=== PATIENT | female | born 1940 | race Two or more races ===

== ENCOUNTER 2017-12-30 07:00 | Day surgery (SDC) | payer BC, MEDICARE ==
[2017-12-23 11:35] VITALS: BMI 23.5
[~2017-12-30 07:00] MED LIST: ALPRAZolam 0.5 MG TAB PO PRN; HEPARIN SODIUM,PORCINE 5,000 UNIT/ML 1 ML VIAL SQ ONE; HYDROmorphone 0.5 MG/0.5 ML SYRINGE IVP PRN; LACTATED RINGERS 1,000 ML IV SCH; MORPHINE SULFATE 4 MG/ML SYRINGE IV PRN; ONDANSETRON 4 MG/2 ML VIAL IVP PRN; ceFAZolin IN SWFI 2 GM/20 ML SYRINGE IVP ONE
[2017-12-30 07:45] VITALS: RESP 16; TEMP 98.2
[2017-12-30] MEDS ORDERED: LIDOCAINE 1% 20 ML VIAL (10MG/ML) FOR IV START INTRADERMA ONE (07:45)
[2017-12-30] MEDS ORDERED: DEXAMETHASONE SOD PHOSPHATE 10 MG/ML 1 ML VIAL IV ONE (07:46)
[2017-12-30] MEDS ORDERED: BUPIVACAINE (PF) 0.25% 30 ML VIAL SQ ONE (08:01)
--- NOTE | 2017-12-30 08:01 | P.GSHP ---
History of Present Illness H&P Date: 12/30/17 Chief Complaint: Right breast mass This a 77-year-old female referred from Dr. Farhana Rahman. Patient presents today for excision of right breast mass. Patient developed a mass in her right breast. Masses been present for approximately 2 months. It is firm and nontender. It is located in the upper outer quadrant of the breast. Past Medical History Past Medical History: Hypertension Additional Past Medical History / Comment(s): anemia History of Any Multi-Drug Resistant Organisms: None Reported Past Surgical History: Hysterectomy Past Anesthesia/Blood Transfusion Reactions: No Reported Reaction, Motion Sickness Smoking Status: Never smoker - Past Family History Daughter(s) Family Medical History: Cancer Additional Family Medical History / Comment(s): breast Medications and Allergies Home Medications Medication Instructions Recorded Confirmed Type Iron 27 mg PO DAILY 12/23/17 12/23/17 History Lisinopril-Hctz 20-25 mg 1 tab PO DAILY 12/23/17 12/23/17 History [Zestoretic 20-25] Meloxicam [Mobic] 7.5 mg PO DAILY 12/23/17 12/23/17 History traMADol HCL [Ultram] 50 mg PO HS PRN 12/23/17 12/23/17 History traMADol HCL [Ultram] 100 mg PO QAM PRN 12/23/17 12/23/17 History Allergies Allergy/AdvReac Type Severity Reaction Status Date / Time No Known Allergies Allergy Verified 12/30/17 07:11 Surgical - Exam Vital Signs Temp Pulse Resp BP Pulse Ox 98.2 F 117 H 16 126/70 96 12/30/17 07:43 12/30/17 07:43 12/30/17 07:43 12/30/17 07:43 12/30/17 07:43 - General well developed, no distress - Eyes PERRL - ENT normal pinna - Neck no masses - Respiratory normal expansion - Cardiovascular Rhythm: regular - Abdomen Abdomen: soft, non tender 3 cm mass in the upper outer quadrant of the right breast. The mass appears to be just below the dermis. It may be a dermal cyst. Results - Labs 12/30/17 07:28 Diabetes panel 12/30/17 Range/Units 07:28 Potassium 4.3 (3.5-5.1) mmol/L Pituitary panel 12/30/17 Range/Units 07:28 Potassium 4.3 (3.5-5.1) mmol/L Adrenal panel 12/30/17 Range/Units 07:28 Potassium 4.3 (3.5-5.1) mmol/L Assessment and Plan Assessment: Right breast mass. We'll perform excision.
[2017-12-30] MEDS ORDERED: PROPOFOL 10 MG/ML 20 ML VIAL IV ONE (08:06)
[2017-12-30] MEDS ORDERED: MIDAZOLAM 2 MG/2 ML VIAL ONE (08:06)
[2017-12-30] MEDS ORDERED: fentaNYL (PF) 50 MCG/ML 2 ML AMP ONE (08:06)
[2017-12-30] MEDS ORDERED: traMADol 50 MG TAB PO ONE (09:03)
--- NOTE | 2017-12-30 09:08 | P.OP ---
Date of Procedure: 12/30/17 Preoperative Diagnosis: Right breast mass Postoperative Diagnosis: Defer to pathology Procedure(s) Performed: Right breast biopsy Anesthesia: MAC Surgeon: Dwayne Miller Estimated Blood Loss (ml): 5 Pathology: none sent (Breast biopsy) Condition: stable Disposition: PACU Description of Procedure: The patient was placed on the operating table in supine position. She received IV sedation. Her right breast was prepped and draped usual sterile fashion. In the upper outer quadrant of the right breast there was a 3 cm mass. This area was anesthetized 1% local Xylocaine. The skin was incised the mass was very superficial. Using electro cautery the mass was dissected free. The Bovie was used for hemostasis.'s. The skin was closed interrupted 3-0 Monocryl suture. Dermabond was applied. Patient tolerated the procedure well well and was sent to recovery room stable condition.
[2017-12-30 09:43] VITALS: BP 124/60; PULSE 86
== END 2017-12-30 09:54 | disposition home or self-care (01) ==
LOC: OR 07:00
PROVIDERS: ATTEND Surgery
DX: C50.411 Malignant neoplasm of upper-outer quadrant of right female breast (principal); I10 Essential (primary) hypertension; D64.9 Anemia, unspecified; Z79.1 Long term (current) use of non-steroidal anti-inflammatories (NSAID); Z79.899 Other long term (current) drug therapy; Z80.3 Family history of malignant neoplasm of breast
CPT/HCPCS: 19120; 84132; 88307; J2250; J1644; J1100; J2405; J3010; J2704; J0690

== ENCOUNTER 2018-01-10 08:00 | Day surgery (SDC) | payer MEDICARE ==
[2018-01-08 13:44] VITALS: BMI 24.3
--- NOTE | 2018-01-10 07:54 | P.GSHP ---
History of Present Illness H&P Date: 01/10/18 Chief Complaint: Right breast cancer This a 77-year-old female who presents today for right breast lumpectomy and sentinel node biopsy. Patient was recently diagnosed with right breast cancer. Patient has opted for lumpectomy with sentinel node biopsy. Past Medical History Past Medical History: Hypertension Additional Past Medical History / Comment(s): anemia History of Any Multi-Drug Resistant Organisms: None Reported Past Surgical History: Breast Surgery, Hysterectomy Past Anesthesia/Blood Transfusion Reactions: No Reported Reaction, Motion Sickness Smoking Status: Never smoker - Past Family History Daughter(s) Family Medical History: Cancer Additional Family Medical History / Comment(s): breast Medications and Allergies Home Medications Medication Instructions Recorded Confirmed Type Iron 27 mg PO QAM 12/23/17 01/08/18 History Lisinopril-Hctz 20-25 mg 1 tab PO QAM 12/23/17 01/08/18 History [Zestoretic 20-25] Meloxicam [Mobic] 7.5 mg PO QAM 12/23/17 01/08/18 History traMADol HCL [Ultram] 50 mg PO HS PRN 12/23/17 01/08/18 History traMADol HCL [Ultram] 100 mg PO QAM PRN 12/23/17 01/08/18 History Allergies Allergy/AdvReac Type Severity Reaction Status Date / Time No Known Allergies Allergy Verified 01/08/18 13:36 Surgical - Exam - General well developed, no distress - Eyes PERRL - ENT normal pinna - Neck no masses - Respiratory normal expansion - Cardiovascular Rhythm: regular - Abdomen Abdomen: soft - Integumentary Right breast shows evidence of recent biopsy on the lateral anterior aspect of the breast. Assessment and Plan Assessment: Right breast cancer. We'll perform right breast lobectomy with sentinel node biopsy. Patient's aware the risk of possible hematoma, seroma and long thoracic and thoracodorsal nerve injury.
[~2018-01-10 08:00] MED LIST changes: -ALPRAZolam 0.5 MG TAB PO PRN; +DEXAMETHASONE SOD PHOSPHATE 10 MG/ML 1 ML VIAL IV ONE; -HYDROmorphone 0.5 MG/0.5 ML SYRINGE IVP PRN; +MIDAZOLAM 2 MG/2 ML VIAL IV PRN; +ONDANSETRON 4 MG/2 ML VIAL IVP ONE; -ONDANSETRON 4 MG/2 ML VIAL IVP PRN; +Pre Op ABX Message 1 EACH MISC MISCELLANE ONE; -ceFAZolin IN SWFI 2 GM/20 ML SYRINGE IVP ONE
[2018-01-10] MEDS ORDERED: ALPRAZolam 0.25 MG TAB PO ONE (08:31)
--- NOTE | 2018-01-10 10:58 | NM ---
EXAMINATION TYPE: NM sentinel node injection DATE OF EXAM: 01/10/2018 COMPARISON: NONE HISTORY: Right breast carcinoma TECHNIQUE AND FINDINGS: The procedure of sentinel lymph node injection was explained to the patient. The benefits, alternatives, and risks were discussed. An informed consent was then obtained. Overlying skin is cleaned with sterile alcohol. Lidocaine buffered with bicarbonate was used as anes thetic into the skin and subcutaneous tissue surrounding the nipple. Following this, 519 uCi Tc 99m Filtered Sulfur Colloid was injected into 4 equivalent doses at 12, 3, 6, and 9:00 position surroundi ng the right nipple intradermally. The injection sites were massaged by nuclear medicine specialist for 10 minutes after injection. T he patient tolerated the procedure well without any immediate complication. The patient was kept in the radiology department for short stay after the procedure and then taken to surgery for surgical pr ocedure what is presumed intraoperative gamma probe will be used for sentinel lymph node detection. IMPRESSION: Right breast radiotracer injection for sentinel node localization as above.
[2018-01-10] MEDS ORDERED: PHENYLEPHRINE-0.9% NACL SYG 1 MG/10 ML SYRINGE ONE (11:01)
[2018-01-10] MEDS ORDERED: fentaNYL (PF) 50 MCG/ML 2 ML AMP ONE (11:01)
[2018-01-10] MEDS ORDERED: MIDAZOLAM 2 MG/2 ML VIAL ONE (11:01)
[2018-01-10] MEDS ORDERED: PROPOFOL 10 MG/ML 20 ML VIAL IV ONE (11:01)
[2018-01-10] MEDS ORDERED: HYDROmorphone (PF) 1 MG/ML ONE (11:01)
[2018-01-10] MEDS ORDERED: METHYLENE BLUE 10 MG/ML (10 ML VIAL) MISCELLANE ONE (11:16)
[2018-01-10] MEDS ORDERED: SODIUM CHLORIDE 0.9% 50 ML with ceFAZolin 2,000 MG IV ONE ×2 (11:32)
[2018-01-10 12:49] VITALS: TEMP 97.2
[2018-01-10] MEDS: HYDROmorphone 0.5 MG/0.5 ML SYRINGE IVP ONE ×2 (12:55→13:11)
[2018-01-10 13:04] VITALS: RESP 18
--- NOTE | 2018-01-10 13:21 | P.OP ---
Date of Procedure: 01/10/18 Preoperative Diagnosis: right breast cancer Postoperative Diagnosis: right breast cancer Procedure(s) Performed: right breast lumpectomy with sentinel node biopsy Anesthesia: LEVY Surgeon: Dwayne Miller Estimated Blood Loss (ml): 10 Pathology: other (right breast lumpectomy,[place] lymph node, axillary lymph nodenode) Condition: stable Disposition: PACU Description of Procedure: the patient's placed the operative table in supine position. She received general anesthesia. Her right breast was prepped and draped usual fashion. The skin was injected with some blue in 4 quadrants right breast. This was massaged for 4 minutes. Next a skin incision made in the sella and then using belectrocautery the clavipectoral fascia was divided. And then using a pair of hemostats the area was bluntly dissected. A blue colored sentinel lymph node was found. This was measured with the neoprobe and was found to contain radiotracer. This was dissected and sent to pathology. The frozen section was a benign lymph node. This point the axilla was examined. There appeared to be another area that had a blue colored lymph node which was radio tracer positive. This was also sent for frozen section and was negative as well. There was a calcified lymph node which was sent. This was sent for permanent sections. Next a elliptical skin incision was made around previous breast biopsy site. Using the Harmonic scissors and electrocautery the lumpectomy was performed. The Bovie hemostasis. The skin of the lump at the site was closed using 3-0 Monocryl suture. The axillary incision was examined. BRYAN drains placed through separate stab incision. And then the skin was closed interrupted 3-0 Monocryl suture. Dermabond dressing was applied. Patient was sent to recovery in stable.
[2018-01-10] MEDS ORDERED: HYDROcodone/APAP 7.5-325MG 1 EACH TAB PO ONE (14:08)
[2018-01-10 14:32] VITALS: BP 115/85; PULSE 85
== END 2018-01-10 14:51 | disposition home or self-care (01) ==
LOC: OR 08:00
PROVIDERS: ATTEND Surgery
DX: C50.911 Malignant neoplasm of unspecified site of right female breast (principal); I89.8 Other specified noninfective disorders of lymphatic vessels and lymph nodes; N60.11 Diffuse cystic mastopathy of right breast; I10 Essential (primary) hypertension; D64.9 Anemia, unspecified; Z80.3 Family history of malignant neoplasm of breast; Z79.1 Long term (current) use of non-steroidal anti-inflammatories (NSAID); Z79.891 Long term (current) use of opiate analgesic; Z79.899 Other long term (current) drug therapy
CPT/HCPCS: 19301; 38525; 88312; 88342; 88331; 88307; 88311; 88341; 38792; A9541; J2250; J1644; J1100; J2405; J2001; Q9968; J3010; J1170 ×2; J0690; J2370; J2704

== ENCOUNTER → 2018-07-21 | Outpatient (CLI) | payer MEDICARE ==
--- NOTE | 2018-07-22 14:56 | MM ---
Reason for exam: additional evaluation requested from prior study. Last mammogram was performed 2 years and 1 month ago. History: Patient is postmenopausal and has history of breast cancer at age 77. Taking antineoplastic for 3 months. Rt. breast lumpectomy and lymhnode removed 12/19 Radiation Right breast Physical Findings: Nurse did not find any significant physical abnormalities on exam. MG 3D Diag Mammo W/Cad WILLA Bilateral CC and MLO view(s) were taken. Prior study comparison: June 19, 2016, bilateral mammogram. The breast tissue is extremely dense which could obscure a lesion on mammography. There is distortion in the right upper outer breast and skin thickening, known treatment changes. No discrete abnormality. These results were verbally communicated with the patient and result sheet given to the patient on 07/21/18. ASSESSMENT: Benign, BI-RAD 2 RECOMMENDATION: Follow-up diagnostic mammogram of both breasts in 1 year.
== END | disposition home or self-care (01) ==
LOC: RADMAMWWP 10:48
PROVIDERS: ATTEND Radiology Radiation Oncology
DX: C50.411 Malignant neoplasm of upper-outer quadrant of right female breast (principal)
CPT/HCPCS: 77066; G0279; 77062

== ENCOUNTER → 2019-01-20 | Outpatient (CLI) | payer MEDICARE ==
[~2019-01-20] MED LIST changes: +DENOSUMAB 60 MG/ML 1 ML SYRINGE SQ ONE; -DEXAMETHASONE SOD PHOSPHATE 10 MG/ML 1 ML VIAL IV ONE; -HEPARIN SODIUM,PORCINE 5,000 UNIT/ML 1 ML VIAL SQ ONE; -LACTATED RINGERS 1,000 ML IV SCH; -MIDAZOLAM 2 MG/2 ML VIAL IV PRN; -MORPHINE SULFATE 4 MG/ML SYRINGE IV PRN; -ONDANSETRON 4 MG/2 ML VIAL IVP ONE; -Pre Op ABX Message 1 EACH MISC MISCELLANE ONE
[2019-01-20 12:47] VITALS: BP 116/69; PULSE 108; RESP 16; TEMP 98.3
== END | disposition home or self-care (01) ==
LOC: PROCWHC3 12:29
PROVIDERS: ATTEND Family Medicine
DX: M81.0 Age-related osteoporosis without current pathological fracture (principal)
CPT/HCPCS: 96372; J0897

== ENCOUNTER 2019-01-30 08:50 | Emergency (ER) | payer MEDICARE ==
[2019-01-30 08:55] VITALS: RESP 18
[2019-01-30] MEDS ORDERED: SODIUM CHLORIDE 0.9% 500 ML 500 ML IV STA (08:58)
--- NOTE | 2019-01-30 09:17 | ED ---
Recheck HPI <Xavi Vogt - Last Filed: 01/30/19 11:32> - General Source: patient Mode of arrival: ambulatory Limitations: no limitations <Tameka Thornton - Last Filed: 01/30/19 15:30> - General Chief Complaint: Recheck/Abnormal Lab/Rx Stated Complaint: shoulder pain, med reaction Time Seen by Provider: 01/30/19 08:57 - History of Present Illness Initial Comments: 78 year old female past medical history of stage 1 breast cancer s/p lumpectomy with radiation, chronic anemia on iron supplements, osteoporosis and hypertension presenting today for chief complaint of left shoulder pain, lightheadedness, weakness. Patient states she is osteoporosis however she is allergic to vitamin D, she states she gets a rash with the supplement. She states he attempted an alternative prolia. This was injected into her left shoulder 2 week ago. Pt states since the injection she has had pain at the site in the left shoulder. Pt also states that for the past few days she has felt "woozy", "lightheaded", denied dizziness, and at times mildly short of breath but states "this is not bad". Pt states weakness feels generalized, no localized to a specific limb/extremity. Patient denies any recent fever, chills , chest pain, back pain, abdominal pain, nausea or vomiting, numbness or tingling, dysuria or hematuria, constipation or diarrhea, headaches or visual changes, or any other complaints. (Tameka Thornton) - Related Data Home Medications Medication Instructions Recorded Confirmed Iron 18 mg PO DAILY 12/23/17 01/30/19 Lisinopril-Hctz 20-25 mg 1 tab PO QAM 12/23/17 01/30/19 [Zestoretic 20-25] traMADol HCL [Ultram] 100 mg PO BID PRN 12/23/17 01/30/19 Cholecalciferol [Vitamin D3] 1,000 unit PO DAILY 01/20/19 01/30/19 Anastrozole [Arimidex] 1 mg PO DAILY 01/30/19 01/30/19 Calcium Carbonate [Calcium] 600 mg PO DAILY 01/30/19 01/30/19 Meloxicam [Mobic] 15 mg PO DAILY 01/30/19 01/30/19 predniSONE See Taper PO DAILY 01/30/19 01/30/19 Allergies Allergy/AdvReac Type Severity Reaction Status Date / Time denosumab [From Prolia] Allergy Rash/Hives Verified 01/30/19 10:01 Review of Systems ROS Other: All systems not noted in ROS Statement are negative. <Xavi Vogt - Last Filed: 01/30/19 11:32> ROS Other: All systems not noted in ROS Statement are negative. <Tameka Thornton - Last Filed: 01/30/19 15:30> ROS Statement: Those systems with pertinent positive or pertinent negative responses have been documented in the HPI. Past Medical History Past Medical History: Cancer, Hypertension Additional Past Medical History / Comment(s): anemia. RIGHT BREAST CANCER- RADIATION ONLY. NO CHEMO. OSTEOPOROSIS. History of Any Multi-Drug Resistant Organisms: None Reported Past Surgical History: Breast Surgery, Hysterectomy Past Anesthesia/Blood Transfusion Reactions: No Reported Reaction, Motion Sickness Past Psychological History: No Psychological Hx Reported Smoking Status: Never smoker Past Alcohol Use History: Occasional Past Drug Use History: None Reported - Past Family History Daughter(s) Family Medical History: Cancer Additional Family Medical History / Comment(s): breast <Tameka Thornton - Last Filed: 01/30/19 15:30> General Exam <Xavi Vogt - Last Filed: 01/30/19 11:32> Limitations: no limitations <Tameka Thornton - Last Filed: 01/30/19 15:30> - General Exam Comments Initial Comments: General: The patient is awake and alert, in no distress, and does not appear acutely ill. Eye: +3 mm pupils are equal, round and reactive to light, extra-ocular movements are intact. No nystagmus. There is normal conjunctiva bilaterally. No signs of icterus. Ears, nose, mouth and throat: There are dry mucous membranes and no oral lesions. Neck: The neck is supple, there is no tenderness or JVD. Cardiovascular: There is a regular rate and rhythm. No murmur, rub or gallop is appreciated. Respiratory: Lungs are clear to auscultation, respirations are non-labored, breath sounds are equal. No wheezes, stridor, rales, or rhonchi. Gastrointestinal: Soft, non-distended, non-tender abdomen without masses or organomegaly noted. There is no rebound or guarding present. No CVA tenderness. Bowel sounds are unremarkable. Musculoskeletal: Normal ROM, no tenderness. Strength 5/5. Sensation intact. DP pulses equal bilaterally 2+. Neurological: A&O x 3. CN II-XII intact, There are no obvious motor or sensory deficits. Coordination appears grossly intact. Speech is normal. Skin: Skin is warm and dry and no rashes or lesions are noted. B/L lower extremity edema. Psychiatric: Cooperative, appropriate mood & affect, normal judgment. (Tameka Thornton) Course <Xavi Vogt - Last Filed: 01/30/19 11:32> <Tameka Thornton - Last Filed: 01/30/19 15:30> Vital Signs 01/30/19 01/30/19 01/30/19 08:51 10:43 11:58 Temperature 97.4 F L 98 F 98 F Pulse Rate 97 89 90 Respiratory 18 18 18 Rate Blood Pressure 154/75 130/64 121/72 O2 Sat by Pulse 99 99 98 Oximetry - Reevaluation(s) Reevaluation #1: 01/30/19 11:32 PA supervision: I proceeded [id number] evaluation the patient and did discuss the findings with her and her family were present. Patient does demonstrate evidence of dehydration. She did have an elevated d-dimer CT was negative for evidence of pulmonary emboli. Patient is feeling improved after IV fluids. She will be discharged I do agree with the assessment and plan. The patient and family are in agreement. Also of note patient does have anemia she has a history of chronic anemia and does take iron for this. (Xavi Vogt) Medical Decision Making - Lab Data Result diagrams: 01/30/19 09:15 01/30/19 09:15 <Xavi Vogt - Last Filed: 01/30/19 11:32> - Lab Data Result diagrams: 01/30/19 09:15 01/30/19 09:15 <Tameka Thornton - Last Filed: 01/30/19 15:30> - Medical Decision Making Well-appearing 78-year-old female. Patient is on a BUN consistent with dehydration. Patient states she does not drink very much daily. Dry on exam. Patient has normal calcium levels. Chest x-ray and EKG within normal limits. D -dimer mildly elevated, CT angiogram revealed no evidence of pulmonary embolism. Patient states she had improvement of lightheadedness after 500 mL bolus. She states she felt much better. Patient states she felt slightly nauseous following IV contrast. She believes this is connected. Patient denies any chest pain, patient does not appear short of breath, denies significant shortness of breath. Patient states she has chronic anemia, hemoglobin 9.9, I recommended outpatient repeat laboratory studies given we have no comparison of previous baseline. Remaining review of system negative, patient appears well, patient was evaluated in person by attending provider Dr. Vogt. This time we feel patient is stable for discharge with outpatient follow- up. Patient is agreeable plan and discharge. Denies questions at this time. Patient's vital signs within normal limits. Return parameters were discussed at length the patient verbalizes understanding. Patient discharged in stable condition appearing well (Tameka Thornton) - Lab Data Lab Results 01/30/19 01/30/19 01/30/19 Range/Units 09:15 09:15 09:15 WBC 7.2 (3.8-10.6) k/uL RBC 3.66 L (3.80-5.40) m/uL Hgb 9.9 L (11.4-16.0) gm/dL Hct 32.1 L (34.0-46.0) % MCV 87.9 (80.0-100.0) fL MCH 27.2 (25.0-35.0) pg MCHC 30.9 L (31.0-37.0) g/dL RDW 15.2 (11.5-15.5) % Plt Count 390 (150-450) k/uL Neutrophils % 74 % Lymphocytes % 17 % Monocytes % 6 % Eosinophils % 2 % Basophils % 1 % Neutrophils # 5.3 (1.3-7.7) k/uL Lymphocytes # 1.2 (1.0-4.8) k/uL Monocytes # 0.4 (0-1.0) k/uL Eosinophils # 0.1 (0-0.7) k/uL Basophils # 0.1 (0-0.2) k/uL Hypochromasia Slight PT 9.4 (9.0-12.0) sec INR 0.8 (<1.2) APTT 22.7 (22.0-30.0) sec D-Dimer 0.90 H (<0.60) mg/L FEU Sodium 139 (137-145) mmol/L Potassium 4.6 (3.5-5.1) mmol/L Chloride 107 (98-107) mmol/L Carbon Dioxide 26 (22-30) mmol/L Anion Gap 6 mmol/L BUN 31 H (7-17) mg/dL Creatinine 0.94 (0.52-1.04) mg/dL Est GFR (CKD-EPI)AfAm 68 (>60 ml/min/1.73 sqM) Est GFR (CKD-EPI)NonAf 59 (>60 ml/min/1.73 sqM) Glucose 106 H (74-99) mg/dL Calcium 9.3 (8.4-10.2) mg/dL Total Bilirubin 0.3 (0.2-1.3) mg/dL AST 14 (14-36) U/L ALT 31 (9-52) U/L Alkaline Phosphatase 84 (38-126) U/L Creatine Kinase 31 (30-135) U/L Troponin I (0.000-0.034) ng/mL Total Protein 6.3 (6.3-8.2) g/dL Albumin 3.6 (3.5-5.0) g/dL 01/30/19 Range/Units 09:15 WBC (3.8-10.6) k/uL RBC (3.80-5.40) m/uL Hgb (11.4-16.0) gm/dL Hct (34.0-46.0) % MCV (80.0-100.0) fL MCH (25.0-35.0) pg MCHC (31.0-37.0) g/dL RDW (11.5-15.5) % Plt Count (150-450) k/uL Neutrophils % % Lymphocytes % % Monocytes % % Eosinophils % % Basophils % % Neutrophils # (1.3-7.7) k/uL Lymphocytes # (1.0-4.8) k/uL Monocytes # (0-1.0) k/uL Eosinophils # (0-0.7) k/uL Basophils # (0-0.2) k/uL Hypochromasia PT (9.0-12.0) sec INR (<1.2) APTT (22.0-30.0) sec D-Dimer (<0.60) mg/L FEU Sodium (137-145) mmol/L Potassium (3.5-5.1) mmol/L Chloride (98-107) mmol/L Carbon Dioxide (22-30) mmol/L Anion Gap mmol/L BUN (7-17) mg/dL Creatinine (0.52-1.04) mg/dL Est GFR (CKD-EPI)AfAm (>60 ml/min/1.73 sqM) Est GFR (CKD-EPI)NonAf (>60 ml/min/1.73 sqM) Glucose (74-99) mg/dL Calcium (8.4-10.2) mg/dL Total Bilirubin (0.2-1.3) mg/dL AST (14-36) U/L ALT (9-52) U/L Alkaline Phosphatase (38-126) U/L Creatine Kinase (30-135) U/L Troponin I <0.012 (0.000-0.034) ng/mL Total Protein (6.3-8.2) g/dL Albumin (3.5-5.0) g/dL - EKG Data EKG Comments: A 12-lead EKG was performed and shows the following: Rate is 91bpm, and rhythm is normal sinus. There are normal QRS complexes and normal R-wave progression. ST segments have no elevation or depression, and TX segments appear normal. EKG reviewed by Dr. Segura. (Tameka Thornton) Disposition <Xavi Vogt - Last Filed: 01/30/19 11:32> Is patient prescribed a controlled substance at d/c from ED?: No Time of Disposition: 11:25 <Tameka Thornton - Last Filed: 01/30/19 15:30> Clinical Impression: Elevated BUN, Dehydration, Chronic anemia Disposition: HOME SELF-CARE Condition: Good Instructions (If sedation given, give patient instructions): Dehydration (ED), Lightheadedness (ED) Additional Instructions: Please use medication as discussed. Please follow-up with family doctor in the next 2 days.. Please return to emergency room if the symptoms increase or worsen or for any other concerns. Referrals: Farhana Rahman DO [Primary Care Provider] - 1-2 days
[2019-01-30 09:25] LABS: Basophils # (A) 0.1 k/uL (0-0.2); Basophils % (A) 1 %; Eosinophils # (A) 0.1 k/uL (0-0.7); Eosinophils % (A) 2 %; HCT 32.1 % (34.0-46.0); HGB 9.9 gm/dL (11.4-16.0); Hypochromasia Slight; Lymphocytes # (A) 1.2 k/uL (1.0-4.8); Lymphocytes % (A) 17 %; MCH 27.2 pg (25.0-35.0); MCHC 30.9 g/dL (31.0-37.0); MCV 87.9 fL (80.0-100.0); Mean Platelet Volume 6.8; Monocytes # (A) 0.4 k/uL (0-1.0); Monocytes % (A) 6 %; Neutrophils # (A) 5.3 k/uL (1.3-7.7); Neutrophils % (A) 74 %; Platelet Count 390 k/uL (150-450); RBC 3.66 m/uL (3.80-5.40); RDW 15.2 % (11.5-15.5); WBC 7.2 k/uL (3.8-10.6)
[2019-01-30 09:37] LABS: INR 0.8 (<1.2); Partial Thromboplastin Time 22.7 sec (22.0-30.0); Prothrombin Time 9.4 sec (9.0-12.0)
[2019-01-30 09:42] LABS: D-Dimer 0.9 mg/L FEU (<0.60)
[2019-01-30 09:47] LABS: Albumin 3.6 g/dL (3.5-5.0); Calcium 9.3 mg/dL (8.4-10.2); Potassium 4.6 mmol/L (3.5-5.1); Total Bilirubin 0.3 mg/dL (0.2-1.3); Total Protein 6.3 g/dL (6.3-8.2)
[2019-01-30 10:46] VITALS: TEMP 98
--- NOTE | 2019-01-30 10:49 | CT ---
EXAMINATION TYPE: CT angio chest DATE OF EXAM: 01/30/2019 9:54 AM COMPARISON: None HISTORY: Shortness of breath Automated exposure control for dose reduction was used. CONTRAST: CTA scan of the thorax is performed and the patient received 80 mL of Omnipaque 370 FINDINGS: LUNGS: Subsegmental changes are seen at both lung bases. Correlate for mild chronic interstitial lung disease and COPD. No pneumothorax. No pleural effusion. There is atherosclerotic change of the aorta with ectasia at the level the aortic arch measuring 3.7 cm. Coronary artery calcification noted. Artifact limits the assessment of the aortic root and portio ns of the aortic arch for dissection. Previous surgery involving the right breast noted and there appears to be right breast scar or a mass measuring 3 cm. Multilevel hypertrophic and degenerative changes of the vertebral column. Pulmonary arteries enhance normally. Structures of the upper abdomen demonstrate a indeterminant upper pole left renal cyst. IMPRESSION: 1. No diagnostic evidence of pulmonary embolism 2. Coronary artery calcification. 3. Ectasia of the aorta which is limited by artifact 4. Correlate for mild chronic interstitial lung disease at the lung bases with subsegmental atelectas is favored over pneumonia correlate clinically. 5. Postsurgical changes involving the right breast with scar or mass measuring 3 cm correlate clinica lly.
--- NOTE | 2019-01-30 10:50 | XR ---
EXAMINATION TYPE: XR chest 2V DATE OF EXAM: 01/30/2019 COMPARISON: CTA chest 01/30/2019 INDICATION: Pain TECHNIQUE: Frontal and lateral views of the chest are obtained. FINDINGS: The heart size is normal. The pulmonary vasculature is normal. There is a density at the right base r measuring 0.5 cm. Follow-up is recommended. Postsurgical sanchez ges are through the right breast region. IMPRESSION: 1. No acute pulmonary process. 2. Nodular density at the right lung base. This appears to correspond to a calcified granuloma CTA pe rformed on the same date.
[2019-01-30 12:00] VITALS: BP 121/72; PULSE 90
== END 2019-01-30 12:00 | disposition home or self-care (01) ==
LOC: EC 08:50
DX: D64.9 Anemia, unspecified (principal); E86.0 Dehydration; R79.9 Abnormal finding of blood chemistry, unspecified; M25.512 Pain in left shoulder; R11.0 Nausea; I10 Essential (primary) hypertension; Z79.899 Other long term (current) drug therapy; M81.0 Age-related osteoporosis without current pathological fracture; Z79.1 Long term (current) use of non-steroidal anti-inflammatories (NSAID); Z79.51 Long term (current) use of inhaled steroids; Z88.8 Allergy status to other drugs, medicaments and biological substances; Z85.3 Personal history of malignant neoplasm of breast; Z92.3 Personal history of irradiation
CPT/HCPCS: 36415; 93005; 85379; 83880; 80053; 82550; 84484; 85025; 85610; 85730; 71046; 71275; 99284; 96360; 96361 ×2; Q9967

== ENCOUNTER → 2019-07-22 | Outpatient (CLI) | payer MEDICARE ==
--- NOTE | 2019-07-23 14:39 | MM ---
Reason for exam: additional evaluation requested from prior study. Last mammogram was performed 1 year ago. History: Patient is postmenopausal and has history of breast cancer at age 77. Lumpectomy of the right breast, December 2017. Radiation therapy of the right breast, 2018. Taking antineoplastic for 3 months. Took other hormone for 1 month. Physical Findings: Nurse did not find any significant physical abnormalities on exam. MG 3D Diag Mammo W/Cad WILLA Bilateral CC and MLO view(s) were taken. XCCL and LM view(s) were taken of the right breast. Prior study comparison: July 21, 2018, bilateral MG 3d diag mammo w/cad WILLA. June 19, 2016, bilateral mammogram. The breast tissue is extremely dense which could obscure a lesion on mammography. Marked skin thickening right breast, stable from 2018. No significant new findings when compared with previous films. These results were verbally communicated with the patient and result sheet given to the patient on 07/22/19. ASSESSMENT: Benign, BI-RAD 2 RECOMMENDATION: Follow-up diagnostic mammogram of both breasts in 1 year.
== END | disposition home or self-care (01) ==
LOC: RADMAMWWP 12:41
PROVIDERS: ATTEND Internal Medicine Hematology & Oncology
DX: Z08 Encounter for follow-up examination after completed treatment for malignant neoplasm (principal); Z85.3 Personal history of malignant neoplasm of breast
CPT/HCPCS: 77066; G0279; 77062

== ENCOUNTER → 2021-08-04 | Outpatient (CLI) | payer MEDICARE ==
--- NOTE | 2021-08-08 10:02 | MM ---
Reason for exam: screening (asymptomatic). Last mammogram was performed 1 year ago. History: Patient is postmenopausal and has history of breast cancer at age 77. Lumpectomy of the right breast, December 2017. Radiation therapy of the right breast, 2018. Taking antineoplastic for 3 months. Took other hormone for 1 month. Physical Findings: A clinical breast exam by your physician is recommended on an annual basis and results should be correlated with mammographic findings. MG 3D Screening Mammo W/Cad Bilateral CC and MLO view(s) were taken. Prior study comparison: July 29, 2020, bilateral MG 3d diag mammo w/cad WILLA. July 22, 2019, bilateral MG 3d diag mammo w/cad WILLA. The breast tissue is extremely dense which could obscure a lesion on mammography. Finding #1: There is stable skin thickening and architectural distortion in the upper outer quadrant of the right breast. Finding #2: There are vascular calcifications in the left breast. There is no new dominant lesion. ASSESSMENT: Benign, BI-RAD 2 RECOMMENDATION: Routine screening mammogram of both breasts in 1 year.
== END | disposition home or self-care (01) ==
LOC: RADMAMWWP 09:50
PROVIDERS: ATTEND Internal Medicine Hematology & Oncology
DX: Z12.31 Encounter for screening mammogram for malignant neoplasm of breast (principal); Z78.0 Asymptomatic menopausal state; Z85.3 Personal history of malignant neoplasm of breast
CPT/HCPCS: 77063; 77067

== ENCOUNTER → 2022-08-07 | Outpatient (CLI) | payer MEDICARE ==
--- NOTE | 2022-08-08 13:41 | MM ---
Reason for Exam: Screening (asymptomatic). Last screening mammogram was performed 12 month(s) ago. Patient History: Menarche at age 15. First Full-Term at age 21. Left ovary removed at age 31. Right ovary removed at age 31. Hysterectomy at age 31. Postmenopausal. Breast cancer, right, age 77. Previous chest radiation therapy at age 76. 12/2017, Lumpectomy on the Right side. 2017, Radiation Therapy on the right side. Prior Study Comparison: 07/22/2019 Bilateral Diagnostic Mammogram, [facility]. 07/29/2020 Bilateral Diagnostic Mammogram, [facility]. 08/04/2021 Bilateral Screening Mammogram, [facility]. Tissue Density: The breast tissue is extremely dense which could obscure a lesion on mammography. Findings: Analyzed By CAD. Stable benign calcifications. Stable post operative changes in the right breast. Overall Assessment: Benign, BI-RAD 2 Management: Screening Mammogram of both breasts in 1 year. A clinical breast exam by your physician is recommended on an annual basis and results should be correlated with mammographic findings. Electronically signed and approved by: Robert Combs M.D. Radiologis
== END | disposition home or self-care (01) ==
LOC: RADMAMWWP 09:56
PROVIDERS: ATTEND Internal Medicine Hematology & Oncology
DX: Z12.31 Encounter for screening mammogram for malignant neoplasm of breast (principal); Z78.0 Asymptomatic menopausal state; Z85.3 Personal history of malignant neoplasm of breast; Z98.890 Other specified postprocedural states
CPT/HCPCS: 77063; 77067

== ENCOUNTER 2023-04-21 15:08 | Inpatient (IN) | payer MEDICARE ==
--- NOTE | 2023-04-21 17:02 | XR ---
EXAMINATION TYPE: XR chest 1V DATE OF EXAM: 04/21/2023 COMPARISON: Chest x-ray and CT chest January 30, 2019 HISTORY: Fall injury with pain TECHNIQUE: 2 frontal views of the chest are obtained. FINDINGS: There is chronic parenchymal change with new suspicious nodule or nodular consolidation ne ar 1.6 cm right midlung. The cardiac silhouette size is upper limits of normal. The osseous struct ures are demineralized. IMPRESSION: Chronic changes with new 1.6 cm right lung nodule or nodular consolidation. Progress stud y advised. If lesion persists further investigation with CT exam would be warranted.
--- NOTE | 2023-04-21 17:03 | XR ---
EXAMINATION TYPE: XR pelvis AP view DATE OF EXAM: 04/21/2023 CLINICAL HISTORY: Fall injury with pain TECHNIQUE: A single AP view of the pelvis is obtained. COMPARISON: None. FINDINGS: Osseous structures are demineralized which is noted to lower radiographic sensitivity Ther e is no acute displaced fracture evident in the pelvis. [id number] axial joint space loss right greater than left hip. Pubic symphysis is intact. Sacroiliac joints suboptimally evaluated due to shiv cency from overlying bowel gas. IMPRESSION: There is no acute displaced fracture in the pelvis.
--- NOTE | 2023-04-21 17:06 | ED ---
Fall HPI - General Chief Complaint: Fall Stated Complaint: Fall Time Seen by Provider: 04/21/23 16:22 Source: patient, RN notes reviewed, old records reviewed Mode of arrival: EMS Limitations: physical limitation - History of Present Illness Initial Comments: This is a 82-year-old female who presents after a fall down a flight of stairs, patient didn't completely fall downstairs. Patient mechanical fall and did suffer some severe from severe pain severe back pain pelvis pain. Patient has significant history of arthritis and inability decreased motorsecondary to arthritis patient patient is unable to move neck back well secondary to severe arthritis untreated. MD Complaint: fall -: hour(s) Fall From: standing, down stairs (#) When Fall Occurred: recurrent falls (With fall downstairs) Fall Witnessed: yes, by family Place Fall Occurred: home (Full flight) Loss of Consciousness: none Prolonged Down Time?: no Symptoms Prior to Fall: none Location: head, neck, back, pelvis Severity: severe Severity scale (1-10): 8 Quality: sharp Context: tripped/slipped Associated Symptoms: denies - Related Data Home Medications Medication Instructions Recorded Confirmed Lisinopril-Hctz 20-25 mg 1 tab PO DAILY 12/23/17 04/21/23 [Zestoretic 20-25] Meloxicam [Mobic] 15 mg PO DAILY PRN 01/30/19 04/21/23 Furosemide [Lasix] 20 mg PO DAILY 04/21/23 04/21/23 Ipratropium [place] 0.06%Nasal 1 spray EA NOSTRIL BID 04/21/23 04/21/23 [Atrovent Nasal 0.06%] Potassium Chloride ER [K-Dur 10] 10 meq PO Q48H 04/21/23 04/21/23 carvediloL [Coreg] 3.125 mg PO BID 04/21/23 04/21/23 Previous Rx's Medication Instructions Recorded HYDROcodone/APAP 7.5-325MG [[place] 1 tab PO Q4H PRN #30 tab 04/24/23 7.5-325] polyethylene glycoL 3350 [Miralax] 17 gm PO DAILY #30 packet 04/24/23 Allergies Allergy/AdvReac Type Severity Reaction Status Date / Time denosumab [From Prolia] Allergy Rash/Hives Verified 04/21/23 18:13 Review of Systems ROS Statement: Those systems with pertinent positive or pertinent negative responses have been documented in the HPI. ROS Other: All systems not noted in ROS Statement are negative. Past Medical History Past Medical History: Cancer, Hypertension Additional Past Medical History / Comment(s): anemia. RIGHT BREAST CANCER- RADIATION ONLY. NO CHEMO. OSTEOPOROSIS. History of Any Multi-Drug Resistant Organisms: None Reported Past Surgical History: Breast Surgery, Hysterectomy Past Anesthesia/Blood Transfusion Reactions: No Reported Reaction, Motion Sickness Past Psychological History: No Psychological Hx Reported Smoking Status: Never smoker Past Alcohol Use History: Occasional Past Drug Use History: None Reported - Past Family History Daughter(s) Family Medical History: Cancer Additional Family Medical History / Comment(s): breast General Exam Limitations: physical limitation General appearance: alert, in no apparent distress, anxious Head exam: Present: atraumatic, normocephalic, normal inspection Eye exam: Present: normal appearance, PERRL, EOMI. Absent: scleral icterus, conjunctival injection, periorbital swelling ENT exam: Present: normal exam, mucous membranes moist Neck exam: Present: normal inspection. Absent: tenderness, meningismus, lymphadenopathy Respiratory exam: Present: normal lung sounds bilaterally. Absent: respiratory distress, wheezes, rales, rhonchi, stridor Cardiovascular Exam: Present: regular rate, normal rhythm, normal heart sounds. Absent: systolic murmur, diastolic murmur, rubs, gallop, clicks GI/Abdominal exam: Present: soft, normal bowel sounds. Absent: distended, tenderness, guarding, rebound, rigid Extremities exam: Present: normal inspection, full ROM, normal capillary refill. Absent: tenderness, pedal edema, joint swelling, calf tenderness Back exam: Present: normal inspection Neurological exam: Present: alert, oriented X3, CN II-XII intact Psychiatric exam: Present: normal affect, normal mood Skin exam: Present: warm, dry, intact, normal color. Absent: rash Course Vital Signs 04/21/23 04/21/23 04/21/23 15:14 18:00 22:15 Temperature 97.2 F L Pulse Rate 80 82 76 Respiratory 18 16 16 Rate Blood Pressure 136/63 107/68 113/53 O2 Sat by Pulse 96 95 97 Oximetry - Reevaluation(s) Reevaluation #1: 04/22/23 00:25 Medical records reviewed Reevaluation #2: 04/22/23 00:25 Patient's pain is uncontrolled Patient is unable to ambulate Computed tomography scan is obtained secondary to patient's pain Reevaluation #3: 04/22/23 00:25 Patient family informed results and questions answered Reevaluation #4: 04/22/23 00:25 Was pt. sent in by a medical professional or institution? @ -no Did you speak to anyone other than the patient for history? @ -no Did you review nursing and triage notes? @ -agree Were old charts reviewed? @ -no Differential Diagnosis? @ -prior EKG interpreted by me (3pts min.)? @ -yes X-rays interpreted by me (1pt min.)? @ -yes CT interpreted by me (1pt min.)? @ -no U/S interpreted by me (1pt. min.)? @ -no What testing was considered but not performed? (CT, X-rays, U/S, labs)? Why? @ -no What meds were considered but not given? Why? @ -no Did you discuss the management of the patient with other professionals? @ -no Did you reconcile home meds? @ -no Was smoking cessation discussed for >3mins.? @ -no Was critical care preformed (if so, how long)? @ -no Were there social determinants of health that impacted care today? How? (Homelessness, low income, unemployed, alcoholism, drug addiction, transportation, low edu. Level, literacy, decrease access to med. care, usp, rehab)? @ -no Was there de-escalation of care discussed even if they declined? (Discuss DNR or withdrawal of care, Hospice)? @ -no What co-morbidities impacted this encounter? (DM, HTN, Smoking, COPD, CAD, Cancer, CVA, Hep., AIDS, mental health diagnosis, sleep apnea, morbid obesity)? @ -none Was patient admitted / discharged? @ -82 female to the emergency department for fall fall down flight of stairs with pelvic fracture pelvic ring fracture. Pain is well-controlled currently she will be admitted for pain control and placement Discharged Undiagnosed new problem with uncertain prognosis? @ -no Drug Therapy requiring intensive monitoring for toxicity (Heparin, Nitro, Insulin, Cardizem)? @ -no Were any procedures done? @ -no Diagnosis/symptom? @ -Pelvic fracture, fall Acute, or Chronic, or Acute on Chronic? @ -no Uncomplicated (without systemic symptoms) or Complicated (systemic symptoms)? @ -complicated Side effects of treatment? @ -no Exacerbation, Progression, or Severe Exacerbation] @ -no Poses a threat to life or bodily function? @ -no - Consultations Consultation #1: Spoke with admitting physicians will agree to admit this patient Medical Decision Making - Medical Decision Making 82 female to the emergency department for evaluation pain and pelvic pain back pain. Right hip pain. Patient has severe pain here in the ER does have pelvic fracture will admit for pain control - Lab Data Result diagrams: 04/24/23 09:27 04/24/23 09:27 - Radiology Data Radiology results: report reviewed (Chest and pelvis x-ray negative for tobacco injury CT brain C-spine negative for traumatic injury CT of the pelvis is positive for fracture), image reviewed Disposition Clinical Impression: Fall, Occipital scalp laceration, Pelvic fracture Disposition: ADMITTED IP TO THIS [facility] Condition: Stable Is patient prescribed a controlled substance at d/c from ED?: No Time of Disposition: 17:30
--- NOTE | 2023-04-21 17:06 | CT ---
EXAMINATION TYPE: CT brain yoli jaquez DATE OF EXAM: 04/21/2023 COMPARISON: NONE HISTORY: fall injury with headache and neck pain CT DLP: 1257.1 mGycm. Automated Exposure Control for Dose Reduction was Utilized. TECHNIQUE: CT scan of the head and cervical spine are performed without contrast. FINDINGS: There is no acute intracranial hemorrhage or midline shift identified. Mild to moderate v entricular and sulcal prominence. Mild ow attenuation in the deep and periventricular white matter . The calvarium is intact. There is small to moderate size acute scalp hematoma over the high occipital region. The globes are intact and the visualized sinuses are clear. Cervical spine is visualized in its entirety from C1 through upper thoracic levels and demonstrates s atisfactory alignment without evidence of acute fracture or dislocation. Prevertebral soft tissue ap pears within normal limits. The C1-C2 articulation show some lateral ossific fusion on coronal image s. There are bridging osteophytes anteriorly with disc space height maintained. Vertebral body heigh ts are maintained. Multilevel uncovertebral facet degenerative changes on axial images. Lung apices s how no pneumothorax. There is ossification or bridging of the posterior elements also present. IMPRESSION: 1. There is no acute fracture or dislocation evident in the cervical spine. 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 2. No acute intracranial hemorrhage or midline shift is seen.
[2023-04-21] MEDS ORDERED: TOPICAL SKIN ADHESIVE 1 EACH AMP TOPICAL ONE (17:31)
[2023-04-21] MEDS ORDERED: MORPHINE SULFATE 4 MG/ML SYRINGE IVP STA (17:50)
[2023-04-21] MEDS ORDERED: SODIUM CHLORIDE 0.9% 500 ML 500 ML IV STA ×2 (17:50→20:01)
--- NOTE | 2023-04-21 18:59 | CT ---
EXAMINATION TYPE: CT hip RT wo con CT DLP: 517.8 mGycm, Automated exposure control for dose reduction was used. DATE OF EXAM: 04/21/2023 6:32 PM COMPARISON: Pelvic radiograph same day CLINICAL INDICATION:Female, 82 years old with history of pain, RT HIP PAIN AFTER FALL TECHNIQUE: Axial images were obtained of the right hip . Additional coronal and sagittal reformatted images and soft tissue and bone window were obtained for review. 3-D reconstruction was created on a separate workstation. Contrast used: None Oral contrast used: None FINDINGS: Acute comminuted fracture of the left pubic symphysis with multiple fracture fragments iden tified. Questionable left inferior pubic ramus fracture also felt to be partially in the [id number] w. Right inferior pubic ramus fracture. Fracture through the sacrum also present. Fracture line of th e superior pubic ramus laterally. The right femur appears intact. There is a prevascular space of Retzius suspected hematoma measuring 7.6 x 2.3 cm. Bilateral inguinal hernias on the left containing loop of small bowel on the right containing fat. Visualized pelvic structures demonstrate IMPRESSION: 1. Multiple fractures including: comminuted left pubic symphysis, right inferior pubic ramus, questi onable left inferior pubic ramus, sacrum anteriorly and the more lateral aspect of the superior pubic ramus. 2. Prevascular space and Retzius hematoma. 3. Left inguinal hernia containing loop of suspected small bowel.
[2023-04-21] MEDS ORDERED: NALOXONE 0.4 MG/ML 1 ML VIAL IV PRN (19:56)
[2023-04-21] MEDS ORDERED: SODIUM CHLORIDE 0.9% 1,000 ML IV STA (20:01)
[2023-04-21] MEDS ORDERED: ONDANSETRON 4 MG/2 ML VIAL IVP PRN (20:01)
[2023-04-21] MEDS ORDERED: MORPHINE SULFATE 4 MG/ML SYRINGE IV STA (20:01)
[2023-04-21 21:06] LABS: Basophils % (A) 0 %; Eosinophils % (A) 0 %; HCT 28.5 % (34.0-46.0); HGB 9.1 gm/dL (11.4-16.0); Lymphocytes # (A) 0.4 k/uL (1.0-4.8); Lymphocytes % (A) 2 %; MCH 28.3 pg (25.0-35.0); MCHC 32.1 g/dL (31.0-37.0); MCV 88.2 fL (80.0-100.0); Mean Platelet Volume 7.7; Monocytes # (A) 0.6 k/uL (0-1.0); Monocytes % (A) 4 %; Neutrophils # (A) 15.9 k/uL (1.3-7.7); Neutrophils % (A) 94 %; Platelet Count 240 k/uL (150-450); RBC 3.23 m/uL (3.80-5.40); RDW 13.4 % (11.5-15.5)
[2023-04-21 21:19] LABS: Albumin 3.2 g/dL (3.5-5.0); Magnesium 1.9 mg/dL (1.6-2.3); Phosphorus 2.6 mg/dL (2.5-4.5); Potassium 4.6 mmol/L (3.5-5.1); Total Bilirubin 0.5 mg/dL (0.2-1.3); Total Protein 5.8 g/dL (6.3-8.2)
[2023-04-21 21:31] LABS: INR 0.9 (<1.2); Partial Thromboplastin Time 21.8 sec (22.0-30.0)
[2023-04-22] MEDS: MORPHINE SULFATE 4 MG/ML SYRINGE IV PRN ×5 (01:13→22:51)
[2023-04-22 05:03] LABS: Appearance,Urine Clear (Clear); Bacteria,Urine Few /hpf; Bilirubin,Urine Negative (Negative); Blood,Urine Negative (Negative); Color,Urine Light Yellow; Glucose,Urine (UA) Negative (Negative); Ketones,Urine Negative (Negative); Leukocyte Esterase,Urine Negative (Negative); Mucus,Urine Rare /hpf; Nitrite,Urine Positive (Negative); PH, Urine 5.5 (5.0-8.0); Protein,Urine Negative (Negative); RBC,Urine 1 /hpf (0-5); Specific Gravity,Urine 1.013 (1.001-1.035); Urobilinogen,Urine <2.0 mg/dL (<2.0); WBC,Urine <1 /hpf (0-5)
[2023-04-22] MEDS: FUROSEMIDE 20 MG TAB PO SCH (08:47)
[2023-04-22] MEDS: carvediloL 3.125 MG TAB PO SCH ×2 (08:47→17:22)
--- NOTE | 2023-04-22 10:48 | CT ---
EXAMINATION TYPE: CT pelvis wo con DATE OF EXAM: 04/22/2023 COMPARISON: CT right hip 04/21/2023 HISTORY: fall, pelvic pain CT DLP: 325.7 mGycm Automated exposure control for dose reduction was used. Unenhanced CT of the pelvis was performed wit h bone and soft tissue window settings submitted. FINDINGS: Comminuted fracture of the left os pubis redemonstrated. Questionable fracture left inferior pubic ra mus. Fracture right inferior pubic ramus mildly comminuted. Additional fracture fracture of the right ischium at the junction with the right inferior acetabulum which is virtually nondisplaced seen best on image 33 sequence 15. Mid right sacral fracture seen best on image 33 sequence 14. Sclerosis and degenerative changes bilateral SI joints. Degenerative changes lower lumbar spine. Space of Retzius h ematoma and prevascular space hematoma. Left inguinal hernia redemonstrated. IMPRESSION: MULTIPLE PELVIC FRACTURES NOTED ABOVE.
[2023-04-22 10:58] LABS: Basophils # (A) 0.03 X 10*3/uL (0.00-0.10); Basophils % (A) 0.2 %; Eosinophils # (A) 0.02 X 10*3/uL (0.04-0.35); Eosinophils % (A) 0.2 %; HCT 27.2 % (37.2-46.3); HGB 8.2 g/dL (12.0-15.0); Immature Grans, Automated 0.7 %; Lymphocytes # (A) 0.74 X 10*3/uL (0.90-5.00); Lymphocytes % (A) 5.9 %; MCH 27.6 pg (27.0-32.0); MCHC 30.1 g/dL (32.0-37.0); MCV 91.6 fL (80.0-97.0); Mean Platelet Volume 10.7 fL (9.5-12.2); Monocytes # (A) 0.88 X 10*3/uL (0.20-1.00); Monocytes % (A) 7.1 %; NRBC Per 100 WBC 0 /100 WBCS (0.0-0.0); Neutrophils # (A) 10.68 X 10*3/uL (1.80-7.70); Neutrophils % (A) 85.9 %; Platelet Count 223 X 10*3/uL (140-440); RBC 2.97 X 10*6/uL (4.10-5.20); RDW 13.4 % (11.5-14.5); WBC 12.44 X 10*3/uL (4.50-10.00)
[2023-04-22 11:13] LABS: African American GFR (CKD) 51.5 (60.0-200.0); Albumin 3.5 g/dL (3.8-4.9); Albumin/Globulin Ratio 1.78 (1.60-3.17); BUN/Creat Ratio 27.93 Ratio (12.00-20.00); Blood Urea Nitrogen 32.4 mg/dL (9.0-27.0); Calcium 9.2 mg/dL (8.7-10.3); Carbon Dioxide 22.7 mmol/L (20.0-27.5); Non-African American GFR(CKD) 44.4 (60.0-200.0); Potassium 4.7 mmol/L (3.5-5.5); Total Bilirubin 0.5 mg/dL (0.30-1.20); Total Protein 5.4 g/dL (6.2-8.2)
[2023-04-22 11:14] LABS: Phosphorus 2.5 mg/dL (2.4-5.1)
[2023-04-22] MEDS ORDERED: HYDROcodone/APAP 5-325MG 1 EACH TAB PO PRN (13:41)
--- NOTE | 2023-04-22 14:12 | P.HPOR ---
History of Present Illness H&P Date: 04/22/23 Chief Complaint: Pelvis fractures s/p fall The patient is a 82 y/o female with a past medical history including breast cancer, who presented to the ER at [facility] after sustaining a fall at home down stairs. She states she fell onto her right side mostly. She did hit her head. Upon evaluation in the ER, x-rays of the pelvis and CT of the right hip were completed. CT of the head and neck were negative for fracture or bleed. Multiple fractures in the pelvis were found and she was admitted to orthopedics for further evaluation and possible placement to skilled rehab. Internal medicine has been consulted. She states she does not use any assist devices at home. No other injuries noted. Review of Systems Constitutional: Denies chills, Denies fatigue, Denies fever Cardiovascular: Denies chest pain, Denies shortness of breath Respiratory: Denies cough Gastrointestinal: Denies diarrhea, Denies nausea, Denies vomiting Musculoskeletal: right: hip pain, hip stiffness Past Medical History Past Medical History: Cancer, Hypertension Additional Past Medical History / Comment(s): anemia. RIGHT BREAST CANCER- RADIATION ONLY. NO CHEMO. OSTEOPOROSIS. History of Any Multi-Drug Resistant Organisms: None Reported Past Surgical History: Breast Surgery, Hysterectomy Past Anesthesia/Blood Transfusion Reactions: No Reported Reaction, Motion Sickness Past Psychological History: No Psychological Hx Reported Smoking Status: Never smoker Past Alcohol Use History: Occasional Past Drug Use History: None Reported - Past Family History Daughter(s) Family Medical History: Cancer Additional Family Medical History / Comment(s): breast Medications and Allergies Home Medications Medication Instructions Recorded Confirmed Type Lisinopril-Hctz 20-25 mg 1 tab PO DAILY 12/23/17 04/21/23 History [Zestoretic 20-25] traMADol HCL [Ultram] 50 mg PO QID 12/23/17 04/21/23 History Meloxicam [Mobic] 15 mg PO DAILY PRN 01/30/19 04/21/23 History Furosemide [Lasix] 20 mg PO DAILY 04/21/23 04/21/23 History Ipratropium [place] 0.06%Nasal 1 spray EA NOSTRIL BID 04/21/23 04/21/23 History [Atrovent Nasal 0.06%] Potassium Chloride ER [K-Dur 10] 10 meq PO Q48H 04/21/23 04/21/23 History carvediloL [Coreg] 3.125 mg PO BID 04/21/23 04/21/23 History Allergies Allergy/AdvReac Type Severity Reaction Status Date / Time denosumab [From Prolia] Allergy Rash/Hives Verified 04/21/23 18:13 Physical Examination The patient is an 82 year-old female in no acute distress. She is alert and or iented 3. The patient's head is normocephalic with a glued laceration on the posterior head. No pain upon palpation to the cervical spine, no step-offs noted. Exam of the bilateral upper extremities reveal no obvious deformities or wounds. Exam of the left lower extremity reveals no deformity or wounds. No pain upon range of motion of the right leg. Exam of the right lower extremity reveals severe guarding to the right hip. There is pain to palpation to the lateral hip and posterior hip/sacrum. There is pain to any motion of the right leg. There is pain to the ride side on AP and lateral compression of the pelvis. No instability noted. Calf is soft and nontender. She is able to wiggle his toes. Circulatory status is intact. Results X-rays of the pelvis and CT of the pelvis reveal a comminuted left os pubis fracture, possible left inferior pubic ramus, right inferior and superior pubic rami fractures. Minimally displaced right sacral fracture. - Labs Labs: Abnormal Lab Results - Last 24 Hours (Table) 04/21/23 04/21/23 04/21/23 Range/Units 20:50 20:50 20:50 WBC 17.0 H (3.8-10.6) k/uL RBC 3.23 L (3.80-5.40) m/uL Hgb 9.1 L (11.4-16.0) gm/dL Hct 28.5 L (34.0-46.0) % MCHC (32.0-37.0) g/dL Immature Gran # (0.00-0.04) X 10*3/uL Neutrophils # 15.9 H (1.3-7.7) k/uL Lymphocytes # 0.4 L (1.0-4.8) k/uL Eosinophils # (0.04-0.35) X 10*3/uL APTT 21.8 L (22.0-30.0) sec Sodium 133 L (137-145) mmol/L Anion Gap (10.00-18.00) mmol/L BUN 41 H (7-17) mg/dL Creatinine 1.25 H (0.52-1.04) mg/dL Est GFR (CKD-EPI)AfAm (60.0-200.0) Est GFR (CKD-EPI)NonAf (60.0-200.0) BUN/Creatinine Ratio (12.00-20.00) Ratio Glucose 121 H (74-99) mg/dL Total Protein 5.8 L (6.3-8.2) g/dL Albumin 3.2 L (3.5-5.0) g/dL Urine Nitrite (Negative) Urine Bacteria (None) /hpf Urine Mucus (None) /hpf 04/22/23 04/22/23 04/22/23 Range/Units 04:02 06:09 06:09 WBC 12.44 H (3.8-10.6) k/uL RBC 2.97 L (3.80-5.40) m/uL Hgb 8.2 L (11.4-16.0) gm/dL Hct 27.2 L (34.0-46.0) % MCHC 30.1 L (32.0-37.0) g/dL Immature Gran # 0.09 H (0.00-0.04) X 10*3/uL Neutrophils # 10.68 H (1.3-7.7) k/uL Lymphocytes # 0.74 L (1.0-4.8) k/uL Eosinophils # 0.02 L (0.04-0.35) X 10*3/uL APTT (22.0-30.0) sec Sodium (137-145) mmol/L Anion Gap 8.00 L (10.00-18.00) mmol/L BUN 32.4 H (7-17) mg/dL Creatinine (0.52-1.04) mg/dL Est GFR (CKD-EPI)AfAm 51.5 L (60.0-200.0) Est GFR (CKD-EPI)NonAf 44.4 L (60.0-200.0) BUN/Creatinine Ratio 27.93 H (12.00-20.00) Ratio Glucose (74-99) mg/dL Total Protein 5.4 L (6.3-8.2) g/dL Albumin 3.5 L (3.5-5.0) g/dL Urine Nitrite Positive H (Negative) Urine Bacteria Few H (None) /hpf Urine Mucus Rare H (None) /hpf H & H 04/21/23 04/22/23 Range/Units 20:50 06:09 Hgb 9.1 L 8.2 L (11.4-16.0) gm/dL Hct 28.5 L 27.2 L (34.0-46.0) % Coagulation 04/21/23 Range/Units 20:50 INR 0.9 (<1.2) Result Diagrams: 04/22/23 06:09 04/22/23 06:09 Assessment and Plan (1) Fall Current Visit: Yes Status: Acute Code(s): W19.XXXA - UNSPECIFIED FALL, INITIAL ENCOUNTER SNOMED Code(s): 8207862 (2) Pubic ramus fracture Current Visit: Yes Status: Acute Code(s): S32.599A - OTH FRACTURE OF UNSP PUBIS, INIT ENCNTR FOR CLOSED FRACTURE SNOMED Code(s): 61750445 (3) Sacral fracture Current Visit: Yes Status: Acute Code(s): S32.10XA - UNSP FRACTURE OF SACRUM, INIT ENCNTR FOR CLOSED FRACTURE SNOMED Code(s): 962181894 Plan: The clinical, x-ray, and CT findings were discussed with the patient and her daughters. The case was discussed at length with Dr. Marte. No surgical intervention is needed for her fractures. She may weightbear as tolerated with a walker. It was discussed that she may need skilled rehab placement depending on how much help she needs for ambulation. The daughters are available to help quite a bit but not 24 hours a day. PT and OT have been ordered. Discharge planning with case management and social work. Continue pain control, [place] has been ordered. We will continue to follow the patient closely.
[2023-04-23] MEDS: FUROSEMIDE 20 MG TAB PO SCH (08:18)
[2023-04-23] MEDS: carvediloL 3.125 MG TAB PO SCH ×2 (08:18→17:47)
[2023-04-23] MEDS: HYDROcodone/APAP 5-325MG 1 EACH TAB PO PRN ×4 (09:09→22:19)
--- NOTE | 2023-04-23 10:09 | P.PN ---
Subjective Progress Note Date: 04/23/23 Principal diagnosis: Pelvis fracture s/p fall This is an 82 year-old female who we are following for multiple pelvic fractures. The patient was evaluated in the recliner at the bedside today. The patient denies nausea, vomiting, abdominal pain, chest pain, or shortness of breath this morning. She states her pain is moderately controlled at this time. The patient has been up with physical therapy this morning and they are recommending skilled rehab on discharge. Objective - Vital Signs Vital signs: Vital Signs Temp 98.5 F 04/23/23 07:11 Pulse 90 04/23/23 07:11 Resp 16 04/23/23 07:11 BP 134/67 04/23/23 07:11 Pulse Ox 92 L 04/23/23 08:31 FiO2 21 04/23/23 08:31 Intake & Output 04/22/23 04/23/23 04/23/23 18:59 06:59 18:59 Output Total 850 600 Balance -850 -600 Output: Urine 850 600 - Exam The patient is an 82 year-old female in no acute distress. She is alert and oriented 3. The patient's head is normocephalic with a glued laceration on the posterior head. No pain upon palpation to the cervical spine, no step-offs noted. Exam of the bilateral upper extremities reveal no obvious deformities or wounds. Exam of the left lower extremity reveals no deformity or wounds. No pain upon range of motion of the right leg. Exam of the right lower extremity reveals severe guarding to the right hip. There is pain to palpation to the lateral hip and posterior hip/sacrum. There is pain to any motion of the right leg. There is pain to the ride side on AP and lateral compression of the pelvis. No instability noted. Calf is soft and nontender. She is able to wiggle his toes. Circulatory status is intact. - Labs CBC & Chem 7: 04/22/23 06:09 04/22/23 06:09 Labs: Abnormal Lab Results - Last 24 Hours (Table) 04/22/23 04/22/23 Range/Units 06:09 06:09 WBC 12.44 H (4.50-10.00) X 10*3/uL RBC 2.97 L (4.10-5.20) X 10*6/uL Hgb 8.2 L (12.0-15.0) g/dL Hct 27.2 L (37.2-46.3) % MCHC 30.1 L (32.0-37.0) g/dL Immature Gran # 0.09 H (0.00-0.04) X 10*3/uL Neutrophils # 10.68 H (1.80-7.70) X 10*3/uL Lymphocytes # 0.74 L (0.90-5.00) X 10*3/uL Eosinophils # 0.02 L (0.04-0.35) X 10*3/uL Anion Gap 8.00 L (10.00-18.00) mmol/L BUN 32.4 H (9.0-27.0) mg/dL Est GFR (CKD-EPI)AfAm 51.5 L (60.0-200.0) Est GFR (CKD-EPI)NonAf 44.4 L (60.0-200.0) BUN/Creatinine Ratio 27.93 H (12.00-20.00) Ratio Total Protein 5.4 L (6.2-8.2) g/dL Albumin 3.5 L (3.8-4.9) g/dL Assessment and Plan (1) Fall Current Visit: Yes Status: Acute Code(s): W19.XXXA - UNSPECIFIED FALL, INITIAL ENCOUNTER SNOMED Code(s): 2681292 (2) Pubic ramus fracture Current Visit: Yes Status: Acute Code(s): S32.599A - OTH FRACTURE OF UNSP PUBIS, INIT ENCNTR FOR CLOSED FRACTURE SNOMED Code(s): 12241710 (3) Sacral fracture Current Visit: Yes Status: Acute Code(s): S32.10XA - UNSP FRACTURE OF SACRUM, INIT ENCNTR FOR CLOSED FRACTURE SNOMED Code(s): 244446611 Plan: The clinical, x-ray, and CT findings were discussed with the patient. The case was discussed at length with Dr. Marte. Continue weightbearing as tolerated with a walker. Discharge planning with case management and social work. We are planning on discharge to skilled rehab likely tomorrow. Continue pain control, [place] 7.5 mg has been ordered. We will continue to follow the patient closely.
[2023-04-23] MEDS: SODIUM CHLORIDE 0.9% 1,000 ML IV SCH ×2 (12:12→22:20)
[2023-04-24] MEDS: carvediloL 3.125 MG TAB PO SCH (08:50)
[2023-04-24] MEDS: FUROSEMIDE 20 MG TAB PO SCH (08:50)
[2023-04-24] MEDS: HYDROcodone/APAP 7.5-325MG 1 EACH TAB PO PRN ×2 (08:50→12:26)
[2023-04-24] MEDS: SODIUM CHLORIDE 0.9% 1,000 ML IV SCH (08:51)
--- NOTE | 2023-04-24 08:54 | P.CONS ---
History of Present Illness - Reason for Consult Consult date: 04/22/23 medical eval - Chief Complaint fall - History of Present Illness Leann Santiago is an 82 yo F with PMH of breast cancer, HTN, chronic diastolic CHF who is admitted to the hospital after a fall at home. She states she fell down staris and landed on her R side, she was unable to walk and her family called EMS. On presentation CT head neck negative for fracture, she was found to have multiple fractures in her R pelvis. Vitals are stable and labs reviewed and significant for Hgb 9.1. Review of Systems All systems: negative Constitutional: Reports weakness, Denies chills, Denies fever Eyes: denies blurred vision, denies pain Ears, nose, mouth and throat: Denies headache, Denies sore throat Cardiovascular: Denies chest pain, Denies shortness of breath Respiratory: Denies cough Gastrointestinal: Denies abdominal pain, Denies diarrhea, Denies nausea, Denies vomiting Genitourinary: Denies dysuria, Denies hematuria Musculoskeletal: Denies myalgias Integumentary: Denies pruritus, Denies rash Neurological: Denies numbness, Denies weakness Psychiatric: Denies anxiety, Denies depression Endocrine: Denies fatigue, Denies weight change Past Medical History Past Medical History: Cancer, Hypertension Additional Past Medical History / Comment(s): anemia. RIGHT BREAST CANCER- RADIATION ONLY. NO CHEMO. OSTEOPOROSIS. History of Any Multi-Drug Resistant Organisms: None Reported Past Surgical History: Breast Surgery, Hysterectomy Past Anesthesia/Blood Transfusion Reactions: No Reported Reaction, Motion Sickness Past Psychological History: No Psychological Hx Reported Smoking Status: Never smoker Past Alcohol Use History: Occasional Past Drug Use History: None Reported - Past Family History Daughter(s) Family Medical History: Cancer Additional Family Medical History / Comment(s): breast Medications and Allergies Home Medications Medication Instructions Recorded Confirmed Type Lisinopril-Hctz 20-25 mg 1 tab PO DAILY 12/23/17 04/21/23 History [Zestoretic 20-25] traMADol HCL [Ultram] 50 mg PO QID 12/23/17 04/21/23 History Meloxicam [Mobic] 15 mg PO DAILY PRN 01/30/19 04/21/23 History Furosemide [Lasix] 20 mg PO DAILY 04/21/23 04/21/23 History Ipratropium [place] 0.06%Nasal 1 spray EA NOSTRIL BID 04/21/23 04/21/23 History [Atrovent Nasal 0.06%] Potassium Chloride ER [K-Dur 10] 10 meq PO Q48H 04/21/23 04/21/23 History carvediloL [Coreg] 3.125 mg PO BID 04/21/23 04/21/23 History Allergies Allergy/AdvReac Type Severity Reaction Status Date / Time denosumab [From Prolia] Allergy Rash/Hives Verified 04/21/23 18:13 Physical Exam Vitals: Vital Signs Temp Pulse Resp BP BP Pulse Ox 04/24/23 07:21 98.5 F 89 18 156/74 91 L 04/24/23 02:43 97.9 F 80 16 128/67 92 L 04/23/23 19:39 98 F 73 16 96/63 95 04/23/23 17:46 80 120/56 04/23/23 13:44 103/49 04/23/23 11:35 95/50 04/23/23 11:26 99.2 F 76 16 85/51 94 L Intake and Output 04/23/23 04/24/23 04/24/23 22:59 06:59 14:59 Intake Total 240 Output Total 600 1500 450 Balance -600 -1500 -210 Intake: Oral 240 Output: Urine 600 1500 450 Other: # Voids 1 # Bowel Movements 0 Gen: elderly female in NAD HEENT: NC/AT, mmm Neck: supple, no JVD or thyromegaly CV: RRR, no murmur Lungs: Normal effort, clear throughout Abd: soft, nontender, non distended Neuro: AAOx3, no focal deficit Skin: warm and dry Results CBC & Chem 7: 04/22/23 06:09 04/22/23 06:09 Assessment and Plan Plan: Pelvic fracture. management per Ortho, no indication for surgery. Pain control and recommend rest, anticipate subacute rehab Chronic diastolic CHF. Continue with lasix, coreg. Hold lisinopril Anemia. Follow Hgb, suspect related to fracture Heparin for DVT prophylaxis
--- NOTE | 2023-04-24 08:55 | P.PN ---
Subjective Progress Note Date: 04/23/23 Her pain is slightly improved today, she denies fever, chills cough. She has been up in the chair. Hgb down to 8.2 today. Objective - Vital Signs Vital signs: Vital Signs Temp 98.5 F 04/24/23 07:21 Pulse 89 04/24/23 07:21 Resp 18 04/24/23 07:21 BP 156/74 04/24/23 07:21 Pulse Ox 91 L 04/24/23 07:21 FiO2 21 04/23/23 08:31 Intake & Output 04/23/23 04/24/23 04/24/23 18:59 06:59 18:59 Intake Total 240 Output Total 600 1500 450 Balance -600 -1500 -210 Intake: Oral 240 Output: Urine 600 1500 450 Other: # Voids 1 # Bowel Movements 0 - Exam CV: RRR Lungs: Clear throughout Neuro: Alert, no focal deficit - Labs CBC & Chem 7: 04/22/23 06:09 04/22/23 06:09 Assessment and Plan Plan: Continue with current regimen, follow hgb and anticipate subacute rehab
[2023-04-24] MEDS ORDERED: HEPARIN SODIUM,PORCINE/PF 5,000 UNIT/0.5 ML SYRINGE SQ SCH (09:00)
[2023-04-24 09:57] LABS: African American GFR (CKD) 46 (>60 ml/min/1.73 sqM); Anion Gap 5 mmol/L; Blood Urea Nitrogen 26 mg/dL (7-17); Calcium 8.6 mg/dL (8.4-10.2); Carbon Dioxide 24 mmol/L (22-30); Chloride 106 mmol/L (98-107); Glucose 111 mg/dL (74-99); Magnesium 1.8 mg/dL (1.6-2.3); Non-African American GFR(CKD) 40 (>60 ml/min/1.73 sqM); Potassium 4.4 mmol/L (3.5-5.1); Sodium 135 mmol/L (137-145)
--- NOTE | 2023-04-24 10:13 | P.DS ---
Providers Date of admission: 04/21/23 19:56 Expected date of discharge: 04/24/23 Attending physician: Marcela Marte DO Consults: 04/22/23 10:21 Consult Physician Routine Consulting Provider: Ozzy Reynoso Consult Reason/Comments: medical management Do you want consulting provider notified?: Yes Primary care physician: Ozzy Reynoso MD - Discharge Diagnosis(es) (1) Fall Current Visit: Yes Status: Acute (2) Pubic ramus fracture Current Visit: Yes Status: Acute (3) Sacral fracture Current Visit: Yes Status: Acute Hospital Course: The patient is a 82 y/o female with a past medical history including breast cancer, who presented to the ER at [facility] after sustaining a fall at home down stairs. She states she fell onto her right side mostly. She did hit her head. Upon evaluation in the ER, x-rays of the pelvis and CT of the right hip were completed. CT of the head and neck were negative for fracture or bleed. Multiple fractures in the pelvis were found and she was admitted to orthopedics for further evaluation and possible placement to skilled rehab. Internal medicine has been consulted. She states she does not use any assist devices at home. No other injuries noted. On the day of discharge, exam reveals improved pain to the right hip. There is pain to palpation to the lateral hip and posterior hip/sacrum. There is pain to any motion of the right leg. There is pain to the ride side on AP and lateral compression of the pelvis. No instability noted. Calf is soft and nontender. She is able to wiggle his toes. Circulatory status is intact. The patient is stable for discharge to skilled rehab today. See medication reconciliation for accurate list for discharge medication. Pertinent Studies: Laboratory Tests 04/22/23 06:09 WBC 12.44 H RBC 2.97 L Hgb 8.2 L Patient Condition at Discharge: Stable Plan - Discharge Summary Discharge Rx Participant: No New Discharge Prescriptions: New HYDROcodone/APAP 7.5-325MG [[place] 7.5-325] 1 tab PO Q4H PRN #30 tab PRN Reason: Pain No Action traMADol HCL [Ultram] 50 mg PO QID Lisinopril-Hctz 20-25 mg [Zestoretic 20-25] 1 tab PO DAILY Meloxicam [Mobic] 15 mg PO DAILY PRN PRN Reason: Pain Potassium Chloride ER [K-Dur 10] 10 meq PO Q48H Ipratropium [place] 0.06%Nasal [Atrovent Nasal 0.06%] 1 spray EA NOSTRIL BID carvediloL [Coreg] 3.125 mg PO BID Furosemide [Lasix] 20 mg PO DAILY Discharge Medication List Lisinopril-Hctz 20-25 mg [Zestoretic 20-25] 1 tab PO DAILY 12/23/17 [History] traMADol HCL [Ultram] 50 mg PO QID 12/23/17 [History] Meloxicam [Mobic] 15 mg PO DAILY PRN 01/30/19 [History] Furosemide [Lasix] 20 mg PO DAILY 04/21/23 [History] Ipratropium [place] 0.06%Nasal [Atrovent Nasal 0.06%] 1 spray EA NOSTRIL BID 04/21/23 [History] Potassium Chloride ER [K-Dur 10] 10 meq PO Q48H 04/21/23 [History] carvediloL [Coreg] 3.125 mg PO BID 04/21/23 [History] HYDROcodone/APAP 7.5-325MG [[place] 7.5-325] 1 tab PO Q4H PRN #30 tab 04/24/23 [Rx] Follow up Appointment(s)/Referral(s): Ozzy Reynoso MD [Primary Care Provider] - 1-2 days Marcela Marte DO [Doctor of Osteopathic Medicine] - 3 Weeks Activity/Diet/Wound Care/Special Instructions: Weightbearing as tolerated with a walker. Discharge Disposition: TRANSFER TO SNF/ECF
[2023-04-24] MEDS ORDERED: polyethylene glycoL 3350 17 GM POWD.PACK PO SCH (12:00)
[2023-04-24 12:57] VITALS: BP 147/74; PULSE 86; RESP 16; TEMP 99.5
[2023-04-24 15:26] LABS: HCT 26.4 % (37.2-46.3); HGB 8.2 g/dL (12.0-15.0); MCH 28.4 pg (27.0-32.0); MCHC 31.1 g/dL (32.0-37.0); MCV 91.3 fL (80.0-97.0); Mean Platelet Volume 10.8 fL (9.5-12.2); NRBC Per 100 WBC 0 /100 WBCS (0.0-0.0); Platelet Count 205 X 10*3/uL (140-440); RBC 2.89 X 10*6/uL (4.10-5.20); RDW 13.7 % (11.5-14.5); WBC 11.85 X 10*3/uL (4.50-10.00)
== END 2023-04-24 14:40 | DRG 552 ==
LOC: EC 15:08 → 5NMEDONC 19:56
PROVIDERS: ADMIT Orthopaedic Surgery Hand Surgery; ATTEND Orthopaedic Surgery Hand Surgery
DX: S32.10XA Unspecified fracture of sacrum, initial encounter for closed fracture (principal); S32.592A Other specified fracture of left pubis, initial encounter for closed fracture; S32.591A Other specified fracture of right pubis, initial encounter for closed fracture; I50.32 Chronic diastolic (congestive) heart failure; I11.0 Hypertensive heart disease with heart failure; S01.01XA Laceration without foreign body of scalp, initial encounter; D64.9 Anemia, unspecified; M19.90 Unspecified osteoarthritis, unspecified site; Z20.822 Contact with and (suspected) exposure to COVID-19; M81.0 Age-related osteoporosis without current pathological fracture; Z79.1 Long term (current) use of non-steroidal anti-inflammatories (NSAID); Z79.899 Other long term (current) drug therapy; Z92.3 Personal history of irradiation; Z85.3 Personal history of malignant neoplasm of breast; Z88.8 Allergy status to other drugs, medicaments and biological substances; W10.8XXA Fall (on) (from) other stairs and steps, initial encounter; Y93.01 Activity, walking, marching and hiking; Y92.008 Other place in unspecified non-institutional (private) residence as the place of occurrence of the external cause
CPT/HCPCS: 70450; 71045; 72125; 72170; 72192; 80048; 80053; 81001; 83605; 83735; 83880; 84100; 84484; 85025; 85027; 85610; 85730; 87635; 94760; 96361; 96374; 96375; 99285

== ENCOUNTER → 2023-11-05 | Outpatient (CLI) | payer MEDICARE ==
--- NOTE | 2023-11-07 12:13 | MM ---
Reason for Exam: Screening (asymptomatic). Last mammogram was performed 1 year(s) and 3 month(s) ago. Patient History: Menarche at age 15. First Full-Term at age 21. Left ovary removed at age 31. Right ovary removed at age 31. Hysterectomy at age 31. Postmenopausal. Breast cancer, right, age 77. Previous chest radiation therapy at age 76. 12/2017, Lumpectomy on the Right side. 2018, Radiation Therapy on the right side. Prior Study Comparison: 07/29/2020 Bilateral Diagnostic Mammogram, [facility]. 08/04/2021 Bilateral Screening Mammogram, [facility]. 08/07/2022 Bilateral MG 3D screening mammo w/cad, [facility]. Tissue Density: The breast tissue is extremely dense which could obscure a lesion on mammography. Findings: Analyzed By CAD. There is no suspicious group of microcalcifications or new suspicious mass in either breast. Overall Assessment: Benign, BI-RAD 2 Management: Screening Mammogram of both breasts in 1 year. . Patient should continue monthly self-breast exams. A clinical breast exam by your physician is recommended on an annual basis. This exam should not preclude additional follow-up of suspicious palpable abnormalities. Note on Lizzette scores and lifetime risk: 1. A Lizzette score greater than 3% is considered moderate risk. If this is the case, consider specialist referral to assess eligibility for a risk reducing agent. 2. If overall lifetime risk for the development of breast cancer is 20% or higher, the patient may qualify for future screening with alternating mammogram and breast MRI. Electronically signed and approved by: Robert Combs M.D. Radiologis
== END | disposition home or self-care (01) ==
LOC: RADMAMWWP 16:07
PROVIDERS: ATTEND Internal Medicine Hematology & Oncology
DX: Z12.31 Encounter for screening mammogram for malignant neoplasm of breast (principal); C50.411 Malignant neoplasm of upper-outer quadrant of right female breast; M81.0 Age-related osteoporosis without current pathological fracture; I10 Essential (primary) hypertension; Z78.0 Asymptomatic menopausal state; Z17.0 Estrogen receptor positive status [ER+]; Z85.3 Personal history of malignant neoplasm of breast
CPT/HCPCS: 77063; 77067

== ENCOUNTER → 2025-04-16 | Outpatient (CLI) | payer MEDICARE ==
--- NOTE | 2025-04-19 07:23 | MM ---
Reason for Exam: Screening (asymptomatic). Last mammogram was performed 1 year(s) and 5 month(s) ago. Patient History: Menarche at age 15. First Full-Term at age 21. Left ovary removed at age 31. Right ovary removed at age 31. Hysterectomy at age 31. Postmenopausal. Breast cancer, right, age 77. Previous chest radiation therapy at age 76. 12/2017, Lumpectomy on the Right side. 2018, Radiation Therapy on the right side. Prior Study Comparison: 08/04/2021 Bilateral Screening Mammogram, [facility]. 08/07/2022 Bilateral MG 3D screening mammo w/cad, [facility]. 11/05/2023 Bilateral MG 3D screening mammo w/cad, [facility]. Tissue Density: The breasts are heterogeneously dense, which may obscure small masses. Findings: Analyzed By CAD. Right breast: There is no suspicious group of microcalcifications or new suspicious mass. Benign-appearing calcifications bilaterally. Left breast: There is no suspicious group of microcalcifications or new suspicious mass. Benign-appearing calcifications bilaterally. Overall Assessment: Benign, BI-RAD 2 Management: Screening Mammogram of both breasts in [address] [facility] will attempt to contact patient to return for supplemental views and ultrasound if indicated. Patient should continue monthly self-breast exams. A clinical breast exam by your physician is recommended on an annual basis. This exam should not preclude additional follow-up of suspicious palpable abnormalities. Note on Lizzette scores and lifetime risk: 1. A Lizzette score greater than 3% is considered moderate risk. If this is the case, consider specialist referral to assess eligibility for a risk reducing agent. 2. If overall lifetime risk for the development of breast cancer is 20% or higher, the patient may qualify for future screening with alternating mammogram and breast MRI. [facility], , 04/19/2025 7:20 AM. Electronically signed and approved by: Xavi Tam DO
== END | disposition home or self-care (01) ==
LOC: RADMAMWWP 15:39
PROVIDERS: ATTEND Internal Medicine Hematology & Oncology
DX: Z12.31 Encounter for screening mammogram for malignant neoplasm of breast (principal); I10 Essential (primary) hypertension; M81.0 Age-related osteoporosis without current pathological fracture; C50.411 Malignant neoplasm of upper-outer quadrant of right female breast; R92.1 Mammographic calcification found on diagnostic imaging of breast; R92.333 Mammographic heterogeneous density, bilateral breasts; Z78.0 Asymptomatic menopausal state; Z17.0 Estrogen receptor positive status [ER+]; Z85.3 Personal history of malignant neoplasm of breast
CPT/HCPCS: 77063; 77067